=== PATIENT | male | born 1955 | race Two or more races ===

== ENCOUNTER 2020-01-22 10:08 | Emergency (ER) | payer OTHER ==
[~2020-01-22] VITALS: Ht 165.1 cm; Wt 61.7 kg
[2020-01-22 10:11] VITALS: BP 107/67
--- NOTE | 2020-01-22 10:21 | NUR ---
ED Nurse Note: Pt from home walked in due to upper lip laceration. Pt fell and accidentally hit his mouth on the edge of a chair. Noted upper lip separation with dried blood. No fresh bleeding upon arrival. Pt denies any pain at this time. AAO x4, follows commands with non labored breathing.
[2020-01-22] MEDS ORDERED: Clindamycin 900mg 50 ML IV ONE (10:30)
[2020-01-22] MEDS ORDERED: Tetanus/Diptheria/Pertussis IM ONE (10:30)
--- NOTE | 2020-01-22 10:37 | Emergency Room Report ---
History of Present Illness General Chief Complaint: Laceration Source: Patient Present Illness HPI Patient is a 64-year-old male past medical history of diabetes who presents to the ER for lip laceration. Patient states that he was drinking last night and fell. He states that he hit his head. Patient states that the injury occurred around 12 hours ago. Patient's last tetanus shot is unknown. He denies any headache. He denies any blurry vision. He denies any neck pain. Allergies: Coded Allergies: No Known Allergies (Unverified , 01/22/20) COVID-19 Screening Contact w/high risk pt: No Recent Travel to affected area: No Experienced COVID-19 symptoms?: No COVID-19 Testing performed [employer]: No Patient History Past Medical History: DM Past Surgical History: none Social History: Reports: alcohol use Nursing Documentation-[facility] Hx Hypertension: Yes Hx Diabetes: Yes Review of Systems All Other Systems: negative except mentioned in HPI Physical Exam Vital Signs Date Time Temp Pulse Resp B/P (MAP) Pulse Ox O2 Delivery O2 Flow Rate FiO2 01/22/20 10:11 98.2 122 19 107/67 (80) 95 Sp02 EP Interpretation: reviewed, normal General Appearance: no apparent distress, alert, GCS 15, non-toxic Head: normocephalic, atraumatic Eyes: bilateral eye normal inspection, bilateral eye PERRL ENT: hearing grossly normal, no angioedema, other - Upper lip large laceration through and through past the vermilion border up to the frenulum and base of the nose approximately 6 cm on each side, semicircular nose laceration through the cartilage approximately 6 cm in length Neck: full range of motion, supple/symm/no masses Respiratory: chest non-tender, lungs clear, normal breath sounds, speaking full sentences Cardiovascular #1: tachycardia Gastrointestinal: normal bowel sounds, non tender, soft, non-distended, no guarding, no rebound Rectal: deferred Genitourinary: normal inspection, no CVA tenderness Musculoskeletal: back normal, normal range of motion, gait/station normal, non- tender Neurologic: alert, motor strength/tone normal, oriented x3, sensory intact, responsive, speech normal Skin: no rash Lymphatic: no adenopathy Medical Decision Making Diagnostic Impression: Primary Impression: Laceration of lip, complicated Additional Impressions: Lip laceration Laceration of nose, complex ER Course Patient presents with very large complex old facial laceration. We have called Dr. Lentz, Dr. Soria, Dr. Gamboa, and Dr. Fountain. Dr. Fountain called back and states he is out of town. No other plastic surgeon has called back. Dr. Swartz and his partner Dr. Kan came to the emergency room. They graciously consulted on the patient. They debrided the wounds and did repair of the nose and lip laceration. Please refer to their note for the specifics. They have the patient to follow-up with in 1 week at 11 AM in their office. Patient was given their office information. Patient was given 900 mg of IV clindamycin. He was also updated on his tetanus. Patient has been given a prescription for clindamycin. After discussing risks and benefits of further diagnostics, treatment plans, as well as indications for and risks of admission, the patient is agreeable to being discharged home. I have explained that their evaluation and treatment in the emergency department today is an important step towards them achieving better health but that their evaluation today is not intended to replace further evaluation and treatment by a physician in their local clinic. I have explained that while the current findings suggest no immediate life threatening emergency they will require further evaluation and treatment by a physician of their choice in their area. They understand that it will be necessary for them to review the final reports of their ED visit with their clinic physician. We have reviewed indications for return to the Emergency Department. I have explained that additional time may need to pass and/or additional testing as an outpatient may be necessary before a definitive diagnosis can be made. They tell me they are willing to follow up as instructed within the timeframe I recommend. They appear to understand what we discussed. Additionally they understand that if they are unable to be seen by an outpatient physician they are welcome, and in fact should, return to the Emergency Department for a repeat evaluation. The patient is stable at time of discharge. EKG Diagnostic Results EKG Time: 10:52 EP Interpretation: MD Brittney Rate: tachycardiac Rhythm: other - sinus tahycardia 114 bpm ASA given to the pt in ED: No Rhythm Strip Diag. Results Rhythm Strip Time: 11:59 EP Interpretation: yes - MD Brittney Rate: 110 Rhythm: no PVC's, no ectopy, other - sinus tachycardia Chest X-Ray Diagnostic Results Chest X-Ray Diagnostic Results : Chest X-Ray Ordered: Yes # of Views/Limited/Complete: 1 View Indication: Other - preop EP Interpretation: Yes - MD Brittney Interpretation: no consolidation, no effusion, no pneumothorax Impression: No acute disease Electronically Signed by: MD Brittney Last Vital Signs Date Time Temp Pulse Resp B/P (MAP) Pulse Ox O2 Delivery O2 Flow Rate FiO2 01/22/20 10:11 98.2 122 19 107/67 (80) 95 Disposition: HOME, SELF-CARE Condition: Stable Scripts Clindamycin Hcl (CLINDAMYCIN HCL) 300 Mg Capsule 300 MG ORAL THREE TIMES A DAY for 10 Days, CAP Prov: Becky Lugo M.D. 01/22/20 Referrals: [facility],REFERRING (PCP) Additional Instructions: The patient was provided with discharge instructions, notified to follow-up with a primary care doctor and or specialist in the next 24-48 hours, and to return to the ED if they have worsening of their symptoms. Please note that this report is being documented using [employer] technology. This can lead to erroneous entry secondary to incorrect interpretation by the dictating instrument. Becky Lugo M.D. January 22, 2020 10:37
--- NOTE | 2020-01-22 10:40 | NUR ---
ED Nurse Note: Dr Swartz at the bed side. Pt taken to CT via wheelchair and stable.
--- NOTE | 2020-01-22 10:50 | NUR ---
ED Nurse Note: Pt came back from CT abnd stable.
[2020-01-22 11:00] VITALS: BP 122/75
[2020-01-22] MEDS ORDERED: Lidocaine 1% Plain 30 ml INJ ONE ×2 (11:04→11:15)
--- NOTE | 2020-01-22 11:13 | Consultation ---
History of Present Illness General Date patient seen: January 22, 2020 Reason for Hospitalization: Laceration Present Illness HPI This is a 64-year-old very pleasant male past medical history of diabetes who presents to the ER at [facility] for lip laceration. Patient states that he was drinking last night and fell. He states that he hit his head but no known LOC. Patient states that the injury occurred around 12 hours ago. noted a large laceration lip mid wide open complex and came in for evaluation. Patient's last tetanus shot is unknown. He denies any headache. He denies any blurry vision. He denies any neck pain. Given complexity of wound surgery called to evaluate and assist with care. patient seen, chart reviewed, patient examined. no n/v/f/c. comfortable in ED. no active bleeding Allergies: Coded Allergies: No Known Allergies (Unverified , 01/22/20) COVID-19 Screening Contact w/high risk pt: No Recent Travel to affected area: No Experienced COVID-19 symptoms?: No Patient History Limited by: medical condition History Provided By: Medical Record, PMD Healthcare decision maker Resuscitation status Advanced Directive on File Past Medical/Surgical History Past Medical/Surgical History: (1) Lip laceration (2) Laceration of lip, complicated Review of Systems Review of Symptoms General ROS: no weight loss or fever Psychological ROS: no depression or mood changes, no memory loss Ophthalmic ROS: no visual changes or eye irritation ENT ROS: no nasal congestion, hearing loss, dizziness Allergy and Immunology ROS: no allergic symptoms or urticaria Hematological and Lymphatic ROS: no swollen glands, unusual bleeding or bruising Endocrine ROS: no polyuria, polydipsia, weight changes, temperature intolerance Respiratory ROS: no cough, shortness of breath, or wheezing Cardiovascular ROS: no chest pain or dyspnea on exertion Gastrointestinal ROS: denies abdominal pain, bright red blood in stool. Musculoskeletal ROS: no myalgias or arthralgias Neurological ROS: no TIA or stroke symptoms Dermatological ROS: no new or changing skin lesions, rashes or pruritis Physical Exam Physical Exam General appearance: alert, cooperative, no distress, appears stated age Head: Normocephalic, without obvious abnormality,see below Eyes: conjunctivae/corneas clear. PERRL, EOM's intact. Fundi benign Throat: Lips, mucosa, and tongue normal. Teeth and gums normal Neck: supple, symmetrical, trachea midline, no adenopathy, thyroid: not enlarged, symmetric, no tenderness/mass/nodules, no carotid bruit and no JVD Lungs: clear to auscultation bilaterally Heart: regular rate and rhythm, S1, S2 normal, no murmur, click, rub or gallop Abdomen: soft, non-tender. Bowel sounds normal. No masses, no organomegaly Extremities: extremities normal, atraumatic, no cyanosis or edema Pulses: 2+ and symmetric Skin: Skin color, texture, turgor normal. No rashes or lesions Neurologic: Grossly normal Last 24 Hour Vital Signs Date Time Temp Pulse Resp B/P (MAP) Pulse Ox O2 Delivery O2 Flow Rate FiO2 01/22/20 10:11 98.2 122 19 107/67 (80) 95 01/22/20 10:11 98.2 122 19 107/67 95 Height (Feet): 5 Height (Inches): 5.00 Weight (Pounds): 136 Medications Current Medications Medications (Trade) Dose Ordered Sig/Keisha Route PRN Reason Start Time Stop Time Status Last Admin Dose Admin Lidocaine HCl (Xylocaine 1% 30ml) 30 ml ONCE ONCE INJ 01/22/20 11:15 01/22/20 11:16 Assessment/Plan Problem List: (1) Lip laceration ICD Codes: S01.511A - Laceration without foreign body of lip, initial encounter SNOMED: 478071136 (2) Laceration of lip, complicated Assessment & Plan: 64-year-old male with complex upper lip laceration extending through the lip complete transection approximately 2 cm from the vermilion border complete transection of to the nasal bridge. Small nasal superficial lacerations as well noted at the tip of the nose. There is no active bleeding currently in the wound is approximately 12 hours old. No nausea fever chills. Patient has minimal feeling in the area. The teeth are clearly visible but not damaged. No loose teeth identified. Given the complexity of the wound the location and the cross-section the vermilion border a complex repair is necessary. Case has been discussed with my colleague Dr. Fransisca Gonzales and will plan for complex repair in the emergency department in patient's best interest. We will cleanse wound will reapproximate appropriately will care for patient to the best of the ability. Tetanus shot given. Antibiotics given. Case discussed with ED physician and colleagues. Thank you for let me participate in patient's care has been a pleasure taking care of Mr. Howe. f/u outpatient in office 1 week for wound check ICD Codes: S01.511A - Laceration without foreign body of lip, initial encounter SNOMED: [id number] Jay Swartz January 22, 2020 11:12
--- NOTE | 2020-01-22 11:13 | Pre-Procedure Note/Attestation ---
Pre-Procedure Note/Attestation Complete Prior to Procedure Planned Procedure: not applicable Procedure Narrative: repair of complex lip / facial laceration Indications for Procedure Pre-Operative Diagnosis: complex lip/ facial laceration Attestation I attest that I discussed the nature of the procedure; its benefits; risks and complications; and alternatives (and the risks and benefits of such alternatives ), prior to the procedure, with the patient (or the patient's legal solar sales representative). I attest that, if there was a reasonable possibility of needing a blood transfusion, the patient (or the patient's legal solar sales representative) was given the [facility] standardized written summary, pursuant to the Koby Anon Raices Blood Safety Act ([place] Health and Safety Code # 1645, as amended). I attest that I re-evaluated the patient just prior to the surgery and that there has been no change in the patient's H&P, except as documented below: Jay Swartz January 22, 2020 11:13
[2020-01-22 11:24] LABS: HEMATOCRIT 36.3 % (42.0-52.0); HEMOGLOBIN 13.1 G/DL (14.2-18.0); MEAN CORPUSCULAR VOLUME 90 FL (80-99); PLATELET COUNT 284 K/UL (150-450); RED BLOOD COUNT 4.05 M/UL (4.70-6.10); RED CELL DISTRIBUTION WIDTH 11.4 % (11.6-14.8); WHITE BLOOD COUNT 18.7 K/UL (4.8-10.8)
--- NOTE | 2020-01-22 11:25 | Diagnostic Imaging Report ---
EXAM: CT CT Head no Contrast INDICATION: Trauma with head pain and lacerated lip. TECHNIQUE: Axial images of the brain were obtained with subsequent sagittal and coronal reformats. All CT scans at this facility are performed using dose modulation techniques as appropriate to a performed exam including the following: automated exposure control with adjustment of the mA and/or kV according to patient size. COMPARISON STUDY: None. RADIATION DOSE: CTDIvol: 53.4 mGy DLP: 1072 mGy-cm Dose information generated by the CT scanner is available in PACS. FINDINGS: Mild age-related volume loss noted. There is no acute large territory cortical infarct, hemorrhage, mass effect or shift. Ventricles and cisterns as well as brainstem and posterior fossa appear unremarkable. The sellar region is normal. Sinuses, mastoid air cells and bony calvarium appear intact. IMPRESSION: Mild age-related volume loss. No acute intracranial traumatic injury.
--- NOTE | 2020-01-22 11:28 | Diagnostic Imaging Report ---
EXAM: CT CT Facial Bones no Contrast CLINICAL HISTORY: Trauma with facial pain and lip laceration. TECHNIQUE: Axial images obtained through the face with subsequent sagittal and coronal reformat images. All CT scans at this facility are performed using dose modulation techniques as appropriate to a performed exam including the following: automated exposure control with adjustment of the mA and/or kV according to patient size. RADIATION DOSE: CTDIvol: 68.7 mGy DLP: 1447 mGy-cm Dose information generated by the CT scanner is available in PACS. COMPARISON: None FINDINGS: There is a fracture of the nasal bone which appears old. No overlying soft tissue swelling noted. There is also an old fracture medial wall right orbit. No sign of acute maxillofacial fracture. The rest of the orbits appear intact. The zygomatic arches are intact. The pterygoid plates show normal configuration. Paranasal sinuses are unremarkable. The TMJs are congruent. There is soft tissue laceration of the upper lip noted. IMPRESSION: SOFT TISSUE LACERATION OF THE UPPER LIP. OLD NASAL FRACTURE AND OLD FRACTURE MEDIAL WALL RIGHT ORBIT. NO CT EVIDENCE OF ACUTE MAXILLOFACIAL FRACTURE.
[2020-01-22 11:38] LABS: ANION GAP 11 mmol/L (5-15); BLOOD UREA NITROGEN 27 mg/dL (7-18); CALCIUM 8.4 MG/DL (8.5-10.1); CARBON DIOXIDE 26 MMOL/L (21-32); CHLORIDE 102 MMOL/L (98-107); POTASSIUM 4.9 MMOL/L (3.5-5.1); SODIUM 139 MMOL/L (136-145)
[2020-01-22 11:42] LABS: ALANINE AMINOTRANSFERASE 48 U/L (12-78); ALBUMIN 3.8 G/DL (3.4-5.0); ALBUMIN/GLOBULIN RATIO 1.3 (1.0-2.7); ALKALINE PHOSPHATASE 68 U/L (46-116); ASPARTATE AMINO TRANSFERASE 26 U/L (15-37); BILIRUBIN,TOTAL 0.4 MG/DL (0.2-1.0)
--- NOTE | 2020-01-22 11:50 | NUR ---
ED Nurse Note: Dr Swartz and Dr Gonzales at the bed side for laceration repair of upper lip.
--- NOTE | 2020-01-22 11:59 | Diagnostic Imaging Report ---
Procedure: XRAY Chest 1v Reason for study: Preop exam. Cough. Comparison films: None. FINDINGS: A single one view chest is obtained. Vascularity is normal. The lung myers are clear bilaterally. Cardiac and mediastinal silhouette are within normal limits. CP angles are sharp. The bony thorax appear unremarkable. IMPRESSION: NO ACUTE CARDIOPULMONARY DISEASE.
[2020-01-22] MEDS ORDERED: CLINDAMYCIN HC300 MG ORAL (12:23)
[2020-01-22 12:28] VITALS: BP 131/78
[2020-01-22 13:00] VITALS: BP 124/75
--- NOTE | 2020-01-22 13:00 | NUR ---
ER DISCHARGE NOTE: Patient is cleared to be discharged per ERMD, pt is aox4, on room air, with stable vital signs. pt was given dc and prescription instructions, pt was able to verbalize understanding, pt id band and iv site removed without complications. pt is able to ambulate with steady gait. pt took all belongings and left with his .
--- NOTE | 2020-01-23 01:00 | Operative Note - Dictated ---
DATE OF OPERATION: 01/22/2020 PREOPERATIVE DIAGNOSIS: Complex lip laceration involving vermilion border and complex nasal laceration. POSTOPERATIVE DIAGNOSIS: Complex lip laceration involving vermilion border and complex nasal laceration. PROCEDURES PERFORMED: 1. Excisional debridement of necrotic tissue from nasal and lip laceration 2. Repair of complex nasal laceration with adjacent tissue transfer. 3. Repair of complex lip laceration involving vermilion border. SURGEON: Fransisca Gonzales MD PROTECTIVE OFFICER: Jay Swartz MD ANESTHESIA: Local. ESTIMATED BLOOD LOSS: 2 mL. INDICATIONS FOR PROCEDURE: This is a 64-year-old male with a history of diabetes, who presented to the ED this morning. He reported that he had fallen last night while drinking resulting in a complex nasal and upper lip laceration. The injury occurred approximately 12 hours ago. The patient consented for repair of his lacerations. DETAILS OF PROCEDURE: The patient was identified and placed in supine position. The nose and upper lip were prepped and draped in the usual sterile fashion. 1% lidocaine was injected subcutaneously to provide local anesthesia. The nasal and lip wounds were washed out vigorously with normal saline. The lip laceration was noted to be approximately 3 cm in length, full -thickness through the upper lip running through the vermilion border and up to the nasolabial angle. The nasal laceration was noted be approximately 3 cm in length with avulsion of the cartilage just to the left of midline. Necrotic tissue was debrided sharply from the wounds and the wounds were again irrigated vigorously and were noted to be clean without remaining debris and without remaining necrotic tissue. After the necrotic tissue was debrided, a flap of adjacent nasal cartilage was pulled anteriorly to close the defect which was closed using simple interrupted 3-0 chromic sutures. The skin of the anterior portion of the nose was reapproximated with simple interrupted 5-0 chromic sutures. The vermilion border was realigned using 3-0 chromic sutures, and simple interrupted 3-0 and 5-0 chromic sutures were used to close both the inner and outer portions of the lip laceration. A small area at the internal end of the wound was left loosely approximated to allow for any drainage. Dermabond was applied to the anterior portion of the nasal laceration. The wounds were cleaned and noted to be hemostatic. The patient tolerated the procedure well and remained in the Emergency Department in satisfactory condition. Fransisca Gonzales MD DR: Viry JOB#: [id number] CC: [id number]
== END 2020-01-22 13:00 | disposition home or self-care (01) ==
LOC: EMR 10:27 → CANBEDREQ 11:43 → EMR 13:00
DX: S01.511A Laceration without foreign body of lip, initial encounter (principal); S01.21XA Laceration without foreign body of nose, initial encounter; F10.920 Alcohol use, unspecified with intoxication, uncomplicated; I10 Essential (primary) hypertension; E11.9 Type 2 diabetes mellitus without complications; W01.10XA Fall on same level from slipping, tripping and stumbling with subsequent striking against unspecified object, initial encounter; Y93.89 Activity, other specified; Y92.9 Unspecified place or not applicable
CPT/HCPCS: 13152; 36415; 70450; 70486; 71045; 80053; 83735; 85007; 85025; 85610; 85730; 86850; 86900; 86901; 90471; 90715; 93005; 96365; J2001; S0077; Z7502; 99284